=== PATIENT | male | born 1980 | race Caucasian/White ===

== ENCOUNTER → 2021-04-16 12:21 | Outpatient (BNVA) | payer MEDICAID, SELFPAY | PROVIDERS: Family Provider Nurse Practitioner Family; Visit Provider Nurse Practitioner Family | DX: Z20.822 Contact with and (suspected) exposure to COVID-19 (principal) | CPT/HCPCS: 87635 ==

== ENCOUNTER 2021-12-30 13:40 | Emergency (ER) | payer MEDICAID, SELFPAY ==
[2021-12-30 14:01] VITALS: BP 148/81; PULSE 81; RESP 20; TEMP 36.8; O2SAT 96; BMI 45.1
--- NOTE | 2021-12-30 14:13 | CT_ITS ---
WS: [id number] CT HEAD TECHNIQUE: Noncontrast CT of the head obtained from the skullbase to the vertex. CLINICAL INFORMATION: slurred speech, AMS, numbness/tinging COMPARISON: None. DLP: 1687.[address] scans at [facility] use at least one of these dose optimization techniques: automated e xposure control; mA and/or kV adjustment per patient size (includes targeted exams where dose is matc hed to clinical indication); or iterative reconstruction. FINDINGS: No evidence of intracranial hemorrhage. Ventricular system and basal cisterns are patent. Ill-defined area of low-attenuation along the posterior limb left internal capsule measuring 1.3 x 1.0 cm. This is nonspecific and differential considerations include area of subacute ischemia, focal demyelination , or other infectious/inflammatory process. No extra-axial fluid collections. Otherwise normal jackson-w chano differentiation. Opacification left mastoid air cells. Right mastoid air cells well aerated. Paranasal sinuses are wel l aerated. CT/CT head wo con* [id number] IMPRESSION: 1. No evidence of intracranial hemorrhage 2. Ill-defined area of low-attenuation change along the posterior limb left in ternal capsule measuring 1.3 x 1.0 cm. This is nonspecific but differential con siderations include infectious, inflammatory, or ischemic etiologies. Recommend further evaluation with MRI without and with gadolinium enhancement. 3. Chronic appearing opacification left mastoid air cells. 4. No other significant findings. Notified HUYEN Urrutia at 12/30/2021 3:59 PM.
[2021-12-30 15:27] LABS: Basophils % 0.3 %; Eosinophils # 0.3 10^3/uL (0.0-0.8); Eosinophils % 3.6 %; Hematocrit 46.5 % (42.0-52.0); Hemoglobin 15.4 g/dL (11.7-16.6); Lymphocytes # 1.8 10^3/uL (0.8-4.8); Lymphocytes % 20.7 %; Mean Corpuscular HGB Conc 33.1 g/dL (30.0-36.0); Mean Corpuscular Hemoglobin 29.1 pg (28.0-34.0); Mean Corpuscular Volume 87.9 fl (80-94); Mean Platelet Volume 11.3 fL (7.4-10.4); Monocytes # 0.9 10^3/uL (0.2-0.9); Monocytes % 10.3 %; Neutrophils # 5.72 10^3/uL (1.8-7.7); Neutrophils % 64.5 %; Nucleated Red Blood Cells % 0 %; Platelet Count 184 10^3/cmm (130-400); Red Blood Count 5.29 10^6/uL (4.1-5.3); Red Cell Distribution Width 13.2 % (12.1-15.1); White Blood Count 8.9 10^3/uL (4.0-10.0)
[2021-12-30 15:45] LABS: Alanine Aminotransferase 75 U/L (0-41); Albumin Level 4.1 g/dL (3.5-5.2); Alkaline Phosphatase 111 IU/L (40-130); Anion Gap 15.9 (5-19); Aspartate Amino Transferase 42 U/L (0-40); Blood Urea Nitrogen 17 mg/dL (6-20); Calcium 8.4 mg/dL (8.5-10.5); Carbon Dioxide 26 mmol/L (22-29); Chloride 98 mmol/L (98-107); Globulin 3.3 g/dL (1.3-4.6); Glomerular Filtration Rate 82.8 mL/min (90-130); Glucose 91 mg/dL (65-115); Magnesium 2.5 mg/dL (1.7-2.3); Osmolality Calculated 283 mOsm/kg (285-295); Potassium 3.9 mmol/L (3.5-5.1); Sodium 136 mmol/L (136-145); Total Bilirubin 0.4 mg/dL (0.15-1.2); Total Protein 7.4 g/dL (6.6-8.7)
--- NOTE | 2021-12-30 16:17 | PM.EVENT ---
Event Note Event Note: Patient was triaged by RN and eventually left/eloped from the waiting room. He was a LWBS. I did not establish care on this patient but labs/head CT were ordered based on his triage complaint. I was contacted by Dr. Lui in regards to abnormal CT findings. Patient was contacted (his mother's phone number was the only way I could contact him) and urged him to return to the ED for further evaluation. He stated he had to leave to care for his children and would not be able to return this evening but stated he would return in the morning.
== END 2021-12-30 15:56 ==
PROVIDERS: Physician Assistant; Emergency Provider Family Medicine; PCP Internal Medicine Gastroenterology
DX: Z53.21 Procedure and treatment not carried out due to patient leaving prior to being seen by health care provider (principal)
CPT/HCPCS: 70450; 80053; 83735; 85025

== ENCOUNTER 2021-12-31 08:17 | Emergency (ER) | payer MEDICAID, SELFPAY ==
[2021-12-31 08:32] VITALS: BP 149/99; PULSE 83; RESP 17; O2SAT 97
--- NOTE | 2021-12-31 09:40 | W.ED.RECABL ---
HPI - Recheck/Abnormal Lab/Rx General: Chief Complaint: Recheck/Abnormal Lab/Rx Stated Complaint: Had a ctscan and bloodwork was asked to come back Time Seen by Provider: 12/31/21 08:31 Source: patient Mode of arrival: ambulatory History of Present Illness: 41-year-old male presents to the emergency room after we had called asked him to return. Yesterday he was in the emergency room the midlevel's triage the waiting room patient ordered a CT of his head as well as lab work based on his triage complaint. He was complaining of difficulty with word finding at times. He left because of volume and long wait times. When we reviewed the results he was asked to come back and he returns this morning. This morning states he is feeling fine, no recurrence of the symptoms that caused him to present yesterday. Patient has a history of hypertension he occasionally takes his lisinopril but not regularly. Only when he feels like he is having elevated blood pressure. He denies any chest pain he has not had difficulty with speech word finding swallowing or gait today. MD complaint: other (Abnormal CT) Returns today for: called because of abnormal lab/test Symptoms since prior visit: no new symptoms Associated symptoms: other (Difficulty with memory and word finding) Review of Systems Const: Denies: fever(s), chills, body aches, change in appetite, fatigue or malaise ENMT: Denies: throat pain, ear or mastoid pain, nasal discharge or nasal congestion Card: Denies: chest pain, edema, dyspnea on exertion or orthopnea Resp: Denies: dyspnea, productive cough or non-productive cough GI: Denies: abdominal pain, nausea, vomiting, hematemesis, coffee ground emesis, diarrhea, constipation, bloating, hematochezia or melena : Denies: flank pain, dysuria, urinary frequency or urinary urgency Skin/Breast: Denies: rash or pruritus PFSH ED PFSH: Medical History (Updated 01/01/22 @ 10:28 by Jose Enrique Moran DO) Hypertension Morbid obesity Social History (Updated 04/16/21 @ 12:11 by Mandi Hale NP) Smoking and tobacco status: current every day smoker cigarettes Alcohol intake: never Physical Exam Const: COMMON NORMALS: no acute distress GENERAL APPEARANCE: cooperative and comfortable ORIENTATION/CONSCIOUSNESS: Yes awake, Yes oriented to person, Yes oriented to place and Yes oriented to time HENMT: COMMON NORMALS: normocephalic, atraumatic and hearing grossly normal bilaterally HEAD & SCALP: normocephalic and atraumatic Neck/C-Spine: COMMON NORMALS: no JVD Resp: COMMON NORMALS: normal respiratory effort, No retractions, No use of accessory muscles and clear to auscultation bilaterally AUSCULTATION: clear to auscultation bilaterally Cardio: COMMON NORMALS: no JVD, regular rate, regular rhythm and No murmurs present (Cardio) RATE: regular rate RHYTHM: regular rhythm GI: COMMON NORMALS: Soft to palpation and No hepatosplenomegaly present AUSCULTATION: Yes normoactive bowel sounds PALPATION: Yes Soft to palpation, No Tenderness to palpation present (GI), No Guarding due to palpation present (GI) and Yes No hepatosplenomegaly present Extremity: COMMON NORMALS: normal to inspection, capillary refill normal, no clubbing, cyanosis or edema, no calf tenderness and no pedal edema Neuro: SENSORIUM/ORIENTATION: Yes oriented to person, Yes oriented to place and Yes oriented to time Skin: COMMON NORMALS: no rashes or lesions noted GENERAL SKIN EXAM: no rashes or lesions noted Course Vital Signs: Vital signs: Vital Signs Pulse Rate 83 12/31/21 08:32 Respiratory Rate 17 12/31/21 08:32 Blood Pressure 149/99 12/31/21 08:32 Pulse Oximetry 97 12/31/21 08:32 MDM - Recheck/Abnormal Lab/Rx Medical Decision Making Patient asymptomatic at this time. He does have an abnormal finding on his CT suspect it may be related to his chronic blood pressure issues. Encourage patient take his lisinopril 10 mg on a daily basis do not wait until he feels symptoms. He also start taking aspirin daily we will set up for outpatient MRI and follow-up with neurology. Discharge Plan Discharge Patient Disposition: Home Condition: Stable Prescriptions: New aspirin 81 mg tablet,delayed release (DR/EC) 81 mg PO DAILY Qty: 30 0RF No Action lisinopril 10 mg Tablet 10 mg PO DAILY 0RF Discharge Orders: Discharge ED (Routine); Ordered 12/31/21 Ordered By: Jose Enrique Moran Referrals: Tad Alexander DO [Primary Care Provider] - Patient Instructions: Opioid Safety Activity Restrictions/Additional Instructions: Case management will call with arrangements for an outpatient MRI of the head after which follow-up with neurology. Coding Level of Care Code ED Propeller Layout Worker for Vinicio Khan Exam Comprehensive NIH stroke score NIHSS Level Of Consciousness - 1a: 0 Level Of Consciousness Questions - 1b: Both Correct Level Of Consciousness Commands - 1c: Both Correct Best Gaze - 2: Normal Visual Burgess - 3: No Visual Loss Facial Palsy - 4: Normal Motor Arm Right - 5: No Drift Motor Arm Left - 5: No Drift Motor Leg Right - 6: No Drift Motor Leg Left - 6: No Drift Limb Ataxia - 7: Absent Sensory - 8: Normal Best Language - 9: No Aphasia Dysarthia - 10: Normal
--- NOTE | 2022-01-01 07:49 | DCPLANNER ---
Addendum entered by Tran Olmedo 03/20/22 14:43: facilities manager was notified that patients insurance denied the MRI. Original Note: facilities manager had message to schedule an outpatient MRI for patient. facilities manager faxed signed order to centralized scheduling, who will call patient with appointment information.
== END 2021-12-31 08:49 | disposition home or self-care (01) ==
PROVIDERS: Emergency Provider Family Medicine; PCP Internal Medicine Gastroenterology
DX: R93.0 Abnormal findings on diagnostic imaging of skull and head, not elsewhere classified (principal); I10 Essential (primary) hypertension; F17.210 Nicotine dependence, cigarettes, uncomplicated
CPT/HCPCS: 99281

== ENCOUNTER 2024-09-30 15:23 | Emergency (ER) | payer MEDICAID, SELFPAY ==
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
[2024-09-30 15:27] VITALS: BP 160/95; PULSE 73; RESP 15; TEMP 36.7; O2SAT 97; BMI 39.4
== END 2024-09-30 15:38 | disposition home or self-care (01) ==
PROVIDERS: Emergency Provider Physician Assistant; PCP Internal Medicine Gastroenterology
DX: S81.811A Laceration without foreign body, right lower leg, initial encounter (principal); Z79.82 Long term (current) use of aspirin; I10 Essential (primary) hypertension; F17.210 Nicotine dependence, cigarettes, uncomplicated; X58.XXXA Exposure to other specified factors, initial encounter
CPT/HCPCS: 99281